=== PATIENT | female | born 2000 | race Caucasian/White ===

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

== ENCOUNTER 2018-01-09 10:29 | Emergency (ER) | payer SELFPAY ==
[2018-01-09 12:42] LABS: Absolute Lymphocytes (CBC) 1.5 K/uL (0.7-4.9); Absolute Monocytes 0.5 K/uL (0.1-1.3); Basophils % 0.3 % (0-1.3); Eosinophils % 1.8 % (0-4.4); Hematocrit 36.7 % (36.0-45.0); Lymphocytes % 20.5 % (15.3-44.8); MCH 31.3 pg (27.0-35.0); MPV 11.1 fL (7.6-11.3); Monocytes % 7.7 % (3.3-12.3); RBC Red Blood Cell Count 4.04 M/uL (3.86-4.86)
--- NOTE | 2018-01-09 13:13 | EDPHYS ---
Physician Documentation [facility] Name: Fior Stevenson Age: 17 yrs Sex: Female : 2000 Arrival Date: 01/09/2018 Time: 10:31 Bed 23 Private MD: None, None ED Physician Rahul Rodriguez HPI: 01/09 12:03 This 17 yrs old Female presents to ER via Ambulatory with complaints of Fall jmm Injury, unknown wks . 12:03 Details of fall: The patient fell from an upright position, while walking. Onset: The jmm symptoms/episode began/occurred gradually, 1 week(s) ago. This is a 17 year old female presents to the ED with lower back pain for the past week worsened after she slipped and fell yesterday. Denies vaginal bleeding. . 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 - Social history:: Smoking status: Patient/guardian denies using tobacco. - Ebola Screening: : Patient negative for fever greater than or equal to 101.5 degrees Fahrenheit, and additional compatible Ebola Virus Disease symptoms Patient denies exposure to infectious person Patient denies travel to an Ebola-affected area in the 21 days before illness onset No symptoms or risks identified at this time. ROS: 12:03 Constitutional: Negative for fever, chills, and weight loss. jmm 12:03 Cardiovascular: Negative for chest pain, palpitations, and edema, Respiratory: Negative jmm for shortness of breath, cough, wheezing, and pleuritic chest pain, Abdomen/GI: Negative for abdominal pain, nausea, vomiting, diarrhea, and constipation. 12:03 MS/Extremity: Negative for injury and deformity, Skin: Negative for injury, rash, and discoloration, Neuro: Negative for headache, weakness, numbness, tingling, and seizure. 12:03 Back: Positive for pain with movement. 12:03 All other systems are negative. jmm Exam: 12:03 Head/Face: atraumatic. Chest/axilla: Normal chest wall appearance and motion. jmm Cardiovascular: Regular rate and rhythm. No edema appreciated Respiratory: Normal respirations, no respiratory distress appreciated Abdomen/GI: Non distended, soft 12:03 Constitutional: The patient appears in no acute distress, alert, awake. 12:03 Back: right lower paraspinal lumbar tenderness on palpation. 12:03 Musculoskeletal/extremity: ROM: intact in all extremities. 12:03 Skin: Appearance: Color: normal in color. 12:03 Neuro: Orientation: is normal, Mentation: is normal, Memory: is normal. 12:03 Psych: Behavior/mood is pleasant, cooperative. Vital Signs: 11:19 BP 120 / 68; Pulse 93; Resp 15; Temp 98.0; Pulse Ox 99% on R/A; Weight 78.93 kg; Height aj 5 ft. 7 in. (170.18 cm); 12:30 BP 112 / 72; Pulse 64; Resp 17; Pulse Ox 98% on R/A; tw2 13:29 BP 106 / 65; Pulse 57; Resp 17; Pulse Ox 99% on R/A; tw2 11:19 Body Mass Index 27.25 (78.93 kg, 170.18 cm) MDM: 11:53 Patient medically screened. [facility] 13:12 Data reviewed: vital signs, nurses notes, lab test result(s), radiologic studies, [facility] ultrasound. Counseling: I had a detailed discussion with the patient and/or guardian regarding: the historical points, exam findings, and any diagnostic results supporting the discharge/admit diagnosis, the need for outpatient follow up, to return to the emergency department if symptoms worsen or persist or if there are any questions or concerns that arise at home. 01/09 12:14 Order name: [employer] [facility] 01/09 12:41 Order name: Urine Dipstick--Ancillary (enter results) 01/09 12:41 Order name: Urine --Ancillary (enter results) 01/09 12:14 Order name: IV Saline Lock; Complete Time: 12:23 [facility] 01/09 12:14 Order name: Labs collected and sent; Complete Time: 12:23 [facility] 01/09 12:14 Order name: NPO; Complete Time: 12:23 [facility] 01/09 12:14 Order name: Urine Dipstick-Ancillary (obtain specimen); Complete Time: 12:23 [facility] 01/09 12:14 Order name: US Transvaginal Ob [facility] 01/09 12:44 Order name: [facility] with Automated Diff; Complete Time: 12:54 EDMS Administered Medications: No medications were administered Disposition: 13:42 Co-signature as Attending Physician, Rahul Rodriguez MD I agree with the assessment and henrik plan of care. Disposition: 01/09/18 13:13 Discharged to Home. Impression: Sprain of ligaments of lumbar spine. - Condition is Stable. - Discharge Instructions: Back Pain, Adult. - Medication Reconciliation Form, Thank You Letter, Antibiotic Education, Prescription Opioid Use, Work release form form. - Follow up: Private Physician; When: 2 - 3 days; Reason: Recheck today's complaints, Continuance of care, Re-evaluation by your physician. - Notes: You make take tylenol as needed for pain. Please return to the ED if you develop - VAGINAL BLEEDING -WORSENING PAIN - FEVER - ABDOMINAL PAIN - ANY OTHER CONCERNING SYMPTOMS Signatures: Dispatcher [employer] EDMS Catrina Braga, RN Rahul Soni MD MD cha Mickail, Joel, PA PA Letty Thorpe, RN RN tw2 Corrections: (The following items were deleted from the chart) 13:31 13:13 01/09/2018 13:13 Discharged to Home. Impression: Sprain of ligaments of lumbar tw2 spine. Condition is Stable. Forms are Medication Reconciliation Form, Thank You Letter, Antibiotic Education, Prescription Opioid Use. Follow up: Private Physician; When: 2 - 3 days; Reason: Recheck today's complaints, Continuance of care, Re-evaluation by your physician. fidencio
--- NOTE | 2018-01-09 13:13 | ER ---
Nurse's Notes [facility] Name: Fior Stevenson Age: 17 yrs Sex: Female : 2000 Arrival Date: 01/09/2018 Time: 10:31 Bed 23 Private MD: None, None Diagnosis: Sprain of ligaments of lumbar spine Presentation: 01/09 11:17 Presenting complaint: Patient states: Reports low back pain after slip and fall onto aj concrete last night. Patient ambulated with steady gait to triage. No difficulty standing or sitting. Also reports positive tests at home. Transition of care: patient was not received from another setting of care. Onset of symptoms was January 08, 2018. Risk Assessment: Do you want to hurt yourself or someone else? Patient reports no desire to harm self or others. Initial Sepsis Screen: Does the patient meet any 2 criteria? No. Patient's initial sepsis screen is negative. Does the patient have a suspected source of infection? No. Patient's initial sepsis screen is negative. Care prior to arrival: None. 11:17 Method Of Arrival: Ambulatory 11:17 Acuity: RUTH 3 Triage Assessment: 11:19 General: Appears in no apparent distress. comfortable, Behavior is calm, cooperative, aj appropriate for age. Pain: Complains of pain in low back area. Neuro: Level of Consciousness is awake, alert, obeys commands, Oriented to person, place, time, situation, Appropriate for age. Respiratory: Airway is patent Respiratory effort is even, unlabored, Respiratory pattern is regular, symmetrical. : No signs and/or symptoms were reported regarding the genitourinary system. Denies vaginal bleeding. Derm: Skin is intact, is healthy with good turgor, Skin is pink, warm \T\ dry. normal. 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 - Social history:: Smoking status: Patient/guardian denies using tobacco. - Ebola Screening: : Patient negative for fever greater than or equal to 101.5 degrees Fahrenheit, and additional compatible Ebola Virus Disease symptoms Patient denies exposure to infectious person Patient denies travel to an Ebola-affected area in the 21 days before illness onset No symptoms or risks identified at this time. Screenin:30 Abuse screen: Denies threats or abuse. Nutritional screening: No deficits noted. tw2 Tuberculosis screening: No symptoms or risk factors identified. Fall Risk None identified. Assessment: 11:50 General: Appears in no apparent distress. Behavior is calm, cooperative, appropriate tw2 for age. Pain: Complains of pain in low back area. Neuro: Level of Consciousness is awake, alert, obeys commands, Oriented to person, place, time, situation. Cardiovascular: Denies chest pain, shortness of breath, Heart tones S1 S2 Capillary refill < 3 seconds Patient's skin is warm and dry. Respiratory: Airway is patent Respiratory effort is even, unlabored, Respiratory pattern is regular, symmetrical, Breath sounds are clear bilaterally. GI: No signs and/or symptoms were reported involving the gastrointestinal system. Abdomen is flat, Bowel sounds present X 4 quads. : No signs and/or symptoms were reported regarding the genitourinary system. EENT: No signs and/or symptoms were reported regarding the EENT system. Derm: No signs and/or symptoms reported regarding the dermatologic system. Musculoskeletal: Circulation, motion, and sensation intact. Range of motion: intact in all extremities. 12:33 Reassessment: Patient appears in no apparent distress at this time. No changes from tw2 previously documented assessment. Patient and/or family updated on plan of care and expected duration. Pain level reassessed. Patient is alert, oriented x 3, equal unlabored respirations, skin warm/dry/pink. 13:29 Reassessment: Patient appears in no apparent distress at this time. No changes from tw2 previously documented assessment. Patient and/or family updated on plan of care and expected duration. Pain level reassessed. Patient is alert, oriented x 3, equal unlabored respirations, skin warm/dry/pink. Vital Signs: 11:19 BP 120 / 68; Pulse 93; Resp 15; Temp 98.0; Pulse Ox 99% on R/A; Weight 78.93 kg; Height aj 5 ft. 7 in. (170.18 cm); 12:30 BP 112 / 72; Pulse 64; Resp 17; Pulse Ox 98% on R/A; tw2 13:29 BP 106 / 65; Pulse 57; Resp 17; Pulse Ox 99% on R/A; tw2 11:19 Body Mass Index 27.25 (78.93 kg, 170.18 cm) ED Course: 10:31 Patient arrived in ED. mr 10:31 None, None is Private Physician. mr 11:19 Triage completed. 11:19 Arm band placed on left wrist. Patient placed in waiting room, Patient notified of wait aj time. 11:49 Bed in low position. Call light in reach. Pulse ox on. NIBP on. tw2 11:51 Rodolfo Stephens PA is PHCP. [facility] 11:51 Rahul Rodriguez MD is Attending Physician. [facility] 12:02 Letty Geiger RN is Primary Nurse. tw2 12:02 served as glove examiner during examination of lower back. tw2 12:15 Inserted saline lock: 22 gauge in right antecubital area, using aseptic technique. tw2 Blood collected. 13:31 IV discontinued, intact, bleeding controlled, No redness/swelling at site. Pressure tw2 dressing applied. Administered Medications: No medications were administered Outcome: 13:13 Discharge ordered by MD. [facility] 13:31 Discharged to home ambulatory, with significant other. tw2 13:31 Condition: stable 13:31 Discharge instructions given to patient, significant other, Instructed on discharge instructions, follow up and referral plans. Demonstrated understanding of instructions, follow-up care. 13:31 Patient left the ED. tw2 Signatures: Catrina Braga, RN RN Rodolfo De León PA PA Evelia Alonzo mr Letty Geiger RN RN tw2
--- NOTE | 2018-01-09 13:34 | RAD REPORT ---
EXAM DESCRIPTION: US - Transvaginal OB - 01/09/2018 1:05 pm CLINICAL HISTORY: , fall, pelvic pain, vaginal bleeding Preliminary findings provided at the time of the study. COMPARISON: None. FINDINGS: No urinary bladder abnormality. Uterus is normal size. Small amount of fluid is present in the cervic al canal. In the fundal endometrial cavity a single intrauterine gestation is identifiable. Yolk sac and pole are identifiable. Cardiac activity is seen 108 BPM. Estimated age is 6 weeks 2 days. A small 9 x 7 x 4 mm subchorionic hemorrhage is present at the inferior margin this is not significant at this small size. No suspicious adnexal finding. No fluid or blood in the cul-de-sac. IMPRESSION: Single 6 week 2 day IUP with heart rate 108 BPM. A small 9 x 7 x 4 mm subchorionic hemorrhage is present not significant at this small size. There is a small amount of fluid in the cervical canal. The internal os is closed. No adnexal abnormality.
[2018-01-09 14:01] LABS: BUN Blood Urea Nitrogen 11 mg/dL (7-18); Bicarbonate 24 mmol/L (21-32); Glucose Level 91 mg/dL (74-106); HCG, Quantitative 38004 mIU/mL (1-3); Potassium 3.9 mmol/L (3.5-5.1); Sodium Level 139 mmol/L (136-145)
[2018-01-09 14:47] LABS: Urine Blood TRACE (NEG); Urine Glucose NEGATIVE (NEG); Urine Protein NEGATIVE (NEG)
== END 2018-01-09 13:31 | disposition home or self-care (01) ==
LOC: ER 10:29
DX: S33.5XXA Sprain of ligaments of lumbar spine, initial encounter (principal); W01.0XXA Fall on same level from slipping, tripping and stumbling without subsequent striking against object, initial encounter; Y93.01 Activity, walking, marching and hiking; Y92.9 Unspecified place or not applicable; Z91.018 Allergy to other foods; Z3A.01 Less than 8 weeks gestation of pregnancy
CPT/HCPCS: 36415; 76817; 80048; 81003; 81025; 84702; 85025; 86900; 86901; 99283